=== PATIENT | male | born 1985 ===

== ENCOUNTER 2021-04-08 23:46 | Emergency (ER) | payer MEDICAID ==
[~2021-04-08] VITALS: Ht 170.2 cm; Wt 77.9 kg
--- NOTE | 2021-04-08 23:51 | NUR ---
EKG DONE IN TRIAGE.
--- NOTE | 2021-04-08 23:53 | NUR ---
[id number] [place] [id number] PATIENT ADDRESS
[2021-04-09 00:23] LABS: BASOPHILS % (AUTO) 0 % (0-1); EOSINOPHILS % (AUTO) 1 % (1-7); LYMPHOCYTES % (AUTO) 39 % (22-44); MEAN CORPUSCULAR HEMOGLOBIN 29.9 pg (27.5-34.5); MEAN CORPUSCULAR HGB CONC 34.9 g/dL (33.2-36.2); MEAN PLATELET VOLUME 7.7 fL (7.4-10.4); MONOCYTES % (AUTO) 9 % (2-9); NEUTROPHILS % (AUTO) 50 % (42-75); PLATELET COUNT 253 x10^3/uL (130-400); RED BLOOD COUNT 4.81 x10^6/uL (4.38-5.82)
[2021-04-09 00:33] LABS: ALBUMIN 3.9 g/dL (3.4-5.0); ANION GAP 8 mmol/L (5-15); CALCIUM 8.6 mg/dL (8.5-10.1); CHLORIDE 106 mmol/L (98-107); CREATININE 0.87 mg/dL (0.7-1.3)
[2021-04-09 01:43] VITALS: BP 118/89
[2021-04-09] MEDS ORDERED: MAALOX/HYOSCYAMINE/LIDOCAINE 45 ML BTL ONE (01:50)
[2021-04-09] MEDS ORDERED: MAALOX/HYOSCYAMINE/LIDOCAINE 45 ML BTL PO ONE (02:00)
--- NOTE | 2021-04-09 02:03 | NUR ---
Patient given discharge instructions and they have confirmed that they understand the instructions. Patient ambulatory with steady gait. NAD, all questions answered appropriately, denies additional needs at this time. No personal belongings left in room after discharge.
--- NOTE | 2021-04-09 02:06 | NUR ---
CALLING FRIEND TO PICK PATIENT UP FOR DISCHARGE. PATIENT STATES HE DOES NOT NEED A TAXI HOME.
--- NOTE | 2021-04-09 02:10 | NUR ---
PROVIDED PATIENT WITH TAXI TO ADDRESS STATED IN NOTES.
== END 2021-04-09 02:40 | disposition home or self-care (01) ==
LOC: ED 23:59
DX: R07.89 Other chest pain (principal)
CPT/HCPCS: 36415; 71045; 80048; 82040; 85025; 93005; 99285